=== PATIENT | male | born 1975 | race Caucasian/White ===

== ENCOUNTER 2017-11-30 18:20 | Emergency (ER) | payer OTHER ==
[2017-11-30 20:34] LABS: Basophils # (A) 0.1 k/uL (0-0.2); Basophils % (A) 1 %; Eosinophils # (A) 0.5 k/uL (0-0.7); Eosinophils % (A) 6 %; HCT 45.9 % (39.0-53.0); HGB 15.3 gm/dL (13.0-17.5); Lymphocytes # (A) 2.9 k/uL (1.0-4.8); Lymphocytes % (A) 33 %; MCH 30.6 pg (25.0-35.0); MCHC 33.4 g/dL (31.0-37.0); MCV 91.6 fL (80.0-100.0); Mean Platelet Volume 6.8; Monocytes # (A) 0.5 k/uL (0-1.0); Monocytes % (A) 5 %; Neutrophils # (A) 4.8 k/uL (1.3-7.7); Neutrophils % (A) 54 %; Platelet Count 266 k/uL (150-450); RBC 5.01 m/uL (4.30-5.90); RDW 12.6 % (11.5-15.5); WBC 8.9 k/uL (3.8-10.6)
[2017-11-30 20:37] VITALS: RESP 17
[2017-11-30 20:47] LABS: ALT 28 U/L (21-72); AST 24 U/L (17-59); Albumin 4.3 g/dL (3.5-5.0); Alkaline Phosphatase 70 U/L (38-126); Anion Gap 7 mmol/L; Blood Urea Nitrogen 19 mg/dL (9-20); Calcium 9.4 mg/dL (8.4-10.2); Carbon Dioxide 28 mmol/L (22-30); Chloride 106 mmol/L (98-107); Creatine Kinase 212 U/L (55-170); Glucose 86 mg/dL (74-99); Potassium 4.4 mmol/L (3.5-5.1); Sodium 141 mmol/L (137-145); Total Bilirubin 0.3 mg/dL (0.2-1.3); Total Protein 6.9 g/dL (6.3-8.2)
[2017-11-30 21:00] LABS: Creatine Kinase MB 0.5 ng/mL (0.0-2.4); Troponin I <0.012 ng/mL (0.000-0.034)
--- NOTE | 2017-11-30 21:25 | ED ---
GI Bleed HPI - General Chief complaint: GI Bleed Stated complaint: abd pain Time Seen by Provider: 11/30/17 20:41 Source: patient Mode of arrival: ambulatory Limitations: no limitations - History of Present Illness Initial comments: 42-year-old male patient presents to the emergency department today for evaluation of blood in his stool. Patient states that he has been having blood in his stool on and off for the last 5 months. Patient states that 5 months ago when it started, he would have small amounts of blood every couple of weeks. States that now he is having blood in his stool every few days. Patient states it is bright red blood. Patient states he is having some mild left-sided abdominal pain with this. She denies any history of hemorrhoids. Denies any rectal pain. Patient denies any diarrhea, nausea, vomiting, dizziness, weakness, chest pain, palpitations, or shortness of breath. Patient states that at the beginning of summer he did have a 13 pound weight loss over the course of one month. Patient believed this to be related to increased physical activity related to his job and has been taking a "weight marina" for the last couple of months. Patient states he has gained the weight back since starting the supplement. Patient denies any family history of colon cancer. Denies any history of bleeding disorders or use of anticoagulants. Patient denies any recent rash, fever, chills, back pain, numbness, tingling, dizziness , weakness, hematuria, dysuria, urinary urgency, urinary frequency, headache, visual changes, or any other complaints. - Related Data Home Medications Medication Instructions Recorded Confirmed HYDROcodone/APAP 5-325MG [[place] 5] 1 each PO Q4HR PRN 05/03/14 11/30/17 Eye Lubricant Combination No.1 1 applic BOTH EYES DAILY 11/30/17 11/30/17 [[place]] LORazepam [Ativan] 1 mg PO DAILY 11/30/17 11/30/17 Sildenafil [Revatio] 20 mg PO DAILY 11/30/17 11/30/17 valACYclovir HCL [Valtrex] 1,000 mg PO Q12HR PRN 11/30/17 11/30/17 Allergies Allergy/AdvReac Type Severity Reaction Status Date / Time No Known Allergies Allergy Verified 11/30/17 20:52 Review of Systems ROS Statement: Those systems with pertinent positive or pertinent negative responses have been documented in the HPI. ROS Other: All systems not noted in ROS Statement are negative. Past Medical History Past Medical History: No Reported History Additional Past Medical History / Comment(s): degen. disc History of Any Multi-Drug Resistant Organisms: None Reported Past Surgical History: Appendectomy Past Anesthesia/Blood Transfusion Reactions: No Reported Reaction Past Psychological History: No Psychological Hx Reported Smoking Status: Current every day smoker Past Alcohol Use History: None Reported Past Drug Use History: None Reported - Past Family History Father Family Medical History: Cancer Mother Family Medical History: Cancer General Exam Limitations: no limitations General appearance: alert, in no apparent distress, other (This is a well- developed, thin appearing adult male patient in no acute distress. Vital signs upon presentation are temperature 98.0F, pulse 87, respirations 18, blood pressure 114/66, pulse ox 98% on room air.) Eye exam: Present: normal appearance, PERRL, EOMI. Absent: scleral icterus, conjunctival injection, periorbital swelling ENT exam: Present: normal exam, normal oropharynx, mucous membranes moist Respiratory exam: Present: normal lung sounds bilaterally. Absent: respiratory distress, wheezes, rales, rhonchi, stridor Cardiovascular Exam: Present: regular rate, normal rhythm, normal heart sounds. Absent: systolic murmur, diastolic murmur, rubs, gallop, clicks GI/Abdominal exam: Present: soft, tenderness (Mild lower abdominal tenderness), normal bowel sounds. Absent: distended, guarding, rebound, rigid Neurological exam: Present: alert, oriented X3, CN II-XII intact Psychiatric exam: Present: normal affect, normal mood Skin exam: Present: warm, dry, intact, normal color. Absent: rash Course Vital Signs 11/30/17 11/30/17 11/30/17 19:37 20:35 21:45 Temperature 98.0 F Pulse Rate 87 84 77 Respiratory 18 17 17 Rate Blood Pressure 114/66 123/84 112/69 O2 Sat by Pulse 98 99 98 Oximetry 11/30/17 11/30/17 22:32 22:59 Temperature 97.9 F Pulse Rate 72 Respiratory 17 Rate Blood Pressure 104/72 O2 Sat by Pulse 98 Oximetry Medical Decision Making - Medical Decision Making 42-year-old male patient presents to the emergency department today for evaluation of blood in his stool. Physical examination did reveal some mild left lower quadrant tenderness. Labs reviewed and were unremarkable. White blood cell count was normal. Hemoglobin and hematocrit were within normal ranges. Patient vital signs are stable. Stools positive for occult blood. I did discuss findings and results with the patient. Patient does have an appointment for colonoscopy on 12/10/2017. He is urged to keep this appointment. He does have [place] at home for pain control. Return parameters were discussed in detail. He verbalizes understanding and agrees with this plan. - Lab Data Result diagrams: 11/30/17 20:21 11/30/17 20:21 Lab Results 11/30/17 11/30/17 11/30/17 Range/Units 19:32 20:21 20:21 WBC 8.9 (3.8-10.6) k/uL RBC 5.01 (4.30-5.90) m/uL Hgb 15.3 (13.0-17.5) gm/dL Hct 45.9 (39.0-53.0) % MCV 91.6 (80.0-100.0) fL MCH 30.6 (25.0-35.0) pg MCHC 33.4 (31.0-37.0) g/dL RDW 12.6 (11.5-15.5) % Plt Count 266 (150-450) k/uL Neutrophils % 54 % Lymphocytes % 33 % Monocytes % 5 % Eosinophils % 6 % Basophils % 1 % Neutrophils # 4.8 (1.3-7.7) k/uL Lymphocytes # 2.9 (1.0-4.8) k/uL Monocytes # 0.5 (0-1.0) k/uL Eosinophils # 0.5 (0-0.7) k/uL Basophils # 0.1 (0-0.2) k/uL APTT (22.0-30.0) sec Sodium (137-145) mmol/L Potassium (3.5-5.1) mmol/L Chloride (98-107) mmol/L Carbon Dioxide (22-30) mmol/L Anion Gap mmol/L BUN (9-20) mg/dL Creatinine (0.66-1.25) mg/dL Est GFR (CKD-EPI)AfAm (>60 ml/min/1.73 sqM) Est GFR (CKD-EPI)NonAf (>60 ml/min/1.73 sqM) Glucose (74-99) mg/dL Calcium (8.4-10.2) mg/dL Total Bilirubin (0.2-1.3) mg/dL AST (17-59) U/L ALT (21-72) U/L Alkaline Phosphatase (38-126) U/L Total Creatine Kinase 212 H (55-170) U/L CK-MB (CK-2) 0.5 (0.0-2.4) ng/mL CK-MB (CK-2) Rel Index 0.2 Troponin I <0.012 (0.000-0.034) ng/mL Total Protein (6.3-8.2) g/dL Albumin (3.5-5.0) g/dL Urine Color Yellow Urine Appearance Clear (Clear) Urine pH 6.0 (5.0-8.0) Ur Specific [place] 1.023 (1.001-1.035) Urine Protein Trace H (Negative) Urine Glucose (UA) Negative (Negative) Urine Ketones Negative (Negative) Urine Blood Negative (Negative) Urine Nitrite Negative (Negative) Urine Bilirubin Negative (Negative) Urine Urobilinogen <2.0 (<2.0) mg/dL Ur Leukocyte Esterase Negative (Negative) Stool Occult Blood (Negative) 11/30/17 11/30/17 11/30/17 Range/Units 20:21 20:21 21:40 WBC (3.8-10.6) k/uL RBC (4.30-5.90) m/uL Hgb (13.0-17.5) gm/dL Hct (39.0-53.0) % MCV (80.0-100.0) fL MCH (25.0-35.0) pg MCHC (31.0-37.0) g/dL RDW (11.5-15.5) % Plt Count (150-450) k/uL Neutrophils % % Lymphocytes % % Monocytes % % Eosinophils % % Basophils % % Neutrophils # (1.3-7.7) k/uL Lymphocytes # (1.0-4.8) k/uL Monocytes # (0-1.0) k/uL Eosinophils # (0-0.7) k/uL Basophils # (0-0.2) k/uL APTT 25.5 (22.0-30.0) sec Sodium 141 (137-145) mmol/L Potassium 4.4 (3.5-5.1) mmol/L Chloride 106 (98-107) mmol/L Carbon Dioxide 28 (22-30) mmol/L Anion Gap 7 mmol/L BUN 19 (9-20) mg/dL Creatinine 0.91 (0.66-1.25) mg/dL Est GFR (CKD-EPI)AfAm >90 (>60 ml/min/1.73 sqM) Est GFR (CKD-EPI)NonAf >90 (>60 ml/min/1.73 sqM) Glucose 86 (74-99) mg/dL Calcium 9.4 (8.4-10.2) mg/dL Total Bilirubin 0.3 (0.2-1.3) mg/dL AST 24 (17-59) U/L ALT 28 (21-72) U/L Alkaline Phosphatase 70 (38-126) U/L Total Creatine Kinase (55-170) U/L CK-MB (CK-2) (0.0-2.4) ng/mL CK-MB (CK-2) Rel Index Troponin I (0.000-0.034) ng/mL Total Protein 6.9 (6.3-8.2) g/dL Albumin 4.3 (3.5-5.0) g/dL Urine Color Urine Appearance (Clear) Urine pH (5.0-8.0) Ur Specific [place] (1.001-1.035) Urine Protein (Negative) Urine Glucose (UA) (Negative) Urine Ketones (Negative) Urine Blood (Negative) Urine Nitrite (Negative) Urine Bilirubin (Negative) Urine Urobilinogen (<2.0) mg/dL Ur Leukocyte Esterase (Negative) Stool Occult Blood Positive (Negative) - EKG Data -: EKG Interpreted by Me EKG Comments: EKG obtained at 2027 shows normal sinus rhythm with a ventricular rate of 73, KS interval 140, QRS duration 96, QT 394, QTC 434. No evidence of ST elevation or depression per Disposition Clinical Impression: GI bleed, Abdominal pain Disposition: HOME SELF-CARE Condition: Good Instructions: Gastrointestinal Bleeding (ED), Abdominal Pain (ED) Additional Instructions: Follow-up with the plan to have a colonoscopy. Return immediately if symptoms change or worsen. Follow-up with your primary care physician for recheck in 1- 2 days. Return here immediately for any new, worsening, or concerning symptoms. Is patient prescribed a controlled substance at d/c from ED?: No Referrals: aPul Nava MD [Primary Care Provider] - 1-2 days Time of Disposition: 22:38
[2017-11-30 21:52] LABS: Appearance,Urine Clear (Clear); Bilirubin,Urine Negative (Negative); Blood,Urine Negative (Negative); Color,Urine Yellow; Glucose,Urine (UA) Negative (Negative); Ketones,Urine Negative (Negative); Leukocyte Esterase,Urine Negative (Negative); Nitrite,Urine Negative (Negative); Protein,Urine Trace (Negative); Specific Gravity,Urine 1.023 (1.001-1.035); Urobilinogen,Urine <2.0 mg/dL (<2.0)
[2017-11-30 22:35] VITALS: BP 104/72; PULSE 72
[2017-11-30 23:00] VITALS: TEMP 97.9
== END 2017-11-30 23:00 | disposition home or self-care (01) ==
LOC: EC 18:20
DX: K92.2 Gastrointestinal hemorrhage, unspecified (principal); R10.9 Unspecified abdominal pain; F17.200 Nicotine dependence, unspecified, uncomplicated; Z90.49 Acquired absence of other specified parts of digestive tract; Z79.899 Other long term (current) drug therapy
CPT/HCPCS: 36415; 80053; 81003; 82272; 82550; 82553; 84484; 85025; 85730; 93005; 99285

== ENCOUNTER → 2020-01-30 | Day surgery (SDC) | payer BC, OTHER ==
[2020-01-25 15:45] VITALS: BMI 19.6
[~2020-01-30] MED LIST: LACTATED RINGERS 1,000 ML IV ONE; LACTATED RINGERS 1,000 ML IV SCH; PROPOFOL 10 MG/ML 20 ML VIAL IV ONE
[2020-01-30 11:43] VITALS: TEMP 97.8
--- NOTE | 2020-01-30 13:20 | P.PCN ---
Date of Procedure: 01/30/20 Procedure(s) Performed: BRIEF HISTORY: Patient is a 44-year-old pleasant white male scheduled for an elective colonoscopy as a part of intermittent rectal bleeding and history of colon polyps. Last colonoscopy was done by Dr. Arita 2 years ago and was noted to have a sigmoid polyp that was not removed endoscopically and biopsy reveals adenoma. Patient was lost for follow-up. If he has been having intermittent rectal bleeding. Hence scheduled for colonoscopy today. PROCEDURE PERFORMED: Colonoscopy with snare polypectom and biopsies y. PREOPERATIVE DIAGNOSIS: He of colon polyps and rectal bleeding. IV sedation per Anesthesia. PROCEDURE: After informed consent was obtained, the patient, was brought into the endoscopy unit. IV sedation was administered by Anesthesia under continuous monitoring. Digital rectal examination was normal. Initially the Olympus CF-160 flexible video colonoscope was then inserted in the rectum, gradually advanced into the cecum without any difficulty. Careful examination was performed as the scope was gradually being withdrawn. Ileocecal valve and the appendiceal orifice were visualized and appeared normal. Prep was excellent. Mucosa of the cecum, ascending colon, transverse colon, descending colon, appeared normal. The sigmoid colon there was a 5 mm polyp that was removed by cold biopsy. In the rectosigmoid colon at 20 cm from the anal verge there was a 4 cm sessile polyps with a very thick base status post partial polypectomy. Because of the location of the polyp and a very thick base and the difficult location I was not able to do a complete polypectomy at this time. The rectum appeared normal. Retroflexion was performed in the rectum and no lesions were seen. The patient tolerated the procedure well. IMPRESSION: Large 4 cm rectosigmoid polyp at 20 cm from the anal verge with a broad base/and thick peduncle status post partial snare polypectomy 5 mm sigmoid polyp status post biopsy RECOMMENDATIONS: Findings of this examination were discussed with the patient as well as his family.. He'll be seen in office next week. Based the biopsy results will plan a repeat flexible sigmoidoscopy with complete endoscopic polypectomy in one to 2 months. .
[2020-01-30 13:25] VITALS: RESP 16
[2020-01-30 13:44] VITALS: BP 107/61; PULSE 61
== END ==
LOC: ORWHC2ENDO 11:28
PROVIDERS: ATTEND Internal Medicine Gastroenterology
DX: D12.7 Benign neoplasm of rectosigmoid junction (principal); K63.5 Polyp of colon; F41.9 Anxiety disorder, unspecified; F17.210 Nicotine dependence, cigarettes, uncomplicated; Z86.010 Personal history of colon polyps; Z79.899 Other long term (current) drug therapy; Z79.891 Long term (current) use of opiate analgesic; Z90.49 Acquired absence of other specified parts of digestive tract
CPT/HCPCS: 88305; 45380; 45385; J2704

== ENCOUNTER 2020-02-27 07:17 | Day surgery (SDC) | payer BC, OTHER ==
[2020-02-20 12:33] VITALS: BMI 18.1
[~2020-02-27 07:17] MED LIST changes: -LACTATED RINGERS 1,000 ML IV ONE; -PROPOFOL 10 MG/ML 20 ML VIAL IV ONE
[2020-02-27 07:37] VITALS: TEMP 97.3
[2020-02-27] MEDS ORDERED: LIDOCAINE 1% (10MG/ML) FOR IV START INTRADERMA ONE (07:39)
[2020-02-27] MEDS ORDERED: PROPOFOL 10 MG/ML 20 ML VIAL IV ONE (08:26)
--- NOTE | 2020-02-27 08:49 | P.PCN ---
Date of Procedure: 02/27/20 Procedure(s) Performed: BRIEF HISTORY: Patient is a 44-year-old pleasant male scheduled for an flexible sigmoidoscopic as part of lower follow up ctosigmoid colon polyp that was noted on recent colonoscopy 2 months ago. The polyp was partially removed and the biopsy revealed tubular villous adenoma with high-grade dysplasia. He scheduled for a complete polypectomy today PROCEDURE PERFORMED: FLEXIBLE SIGMOIDOSCOPE WITH SNARE POLYPECTOMY PREOPERATIVE DIAGNOSIS: Follow-up large rectosigmoid polyp. IV sedation per Anesthesia. PROCEDURE: After informed consent was obtained, the patient, was brought into the endoscopy unit. IV sedation was administered by Anesthesia under continuous monitoring. Digital rectal examination was normal. Initially the Olympus CF-160 flexible video colonoscope was then inserted in the rectum, gradually advanced into the descending colon without any difficulty.. Careful examination was performed as the scope was gradually being withdrawn. Mucosa of the descending colon, sigmoid colon appeared normal. In the rectosigmoid colon at 20 cm from the anal verge there was a 3 cm thick pedunculated polyp that was removed by snare polypectomy and complete polypectomy was accomplished. The rectum appeared normal. Retroflexion was performed in the rectum and no lesions were seen. The patient tolerated the procedure well. IMPRESSION: 3 cm thick pedunculated rectosigmoid polyp status post snare polypectomy and complete polypectomy was accomplished RECOMMENDATIONS: Findings of this examination were discussed with the patient as well as his family. He was advised to follow with the biopsy results. Based on the biopsy results will plan a repeat colonoscopy in one year.
[2020-02-27 08:53] VITALS: PULSE 70
[2020-02-27 09:07] VITALS: RESP 18
[2020-02-27 09:24] VITALS: BP 108/63
== END 2020-02-27 09:28 | disposition home or self-care (01) ==
LOC: ORWHC2ENDO 07:17
PROVIDERS: ATTEND Internal Medicine Gastroenterology
DX: D12.7 Benign neoplasm of rectosigmoid junction (principal); G47.33 Obstructive sleep apnea (adult) (pediatric); F17.210 Nicotine dependence, cigarettes, uncomplicated; Z99.89 Dependence on other enabling machines and devices; Z79.899 Other long term (current) drug therapy
CPT/HCPCS: 88305; 45338; J2704

== ENCOUNTER 2021-07-17 09:39 | Day surgery (SDC) | payer BC ==
[2021-07-17 09:59] VITALS: TEMP 98.5
[2021-07-17] MEDS ORDERED: PROPOFOL 10 MG/ML 20 ML VIAL IV ONE (11:19)
--- NOTE | 2021-07-17 11:39 | P.PCN ---
Date of Procedure: 07/17/21 Procedure(s) Performed: BRIEF HISTORY: Patient is a 46-year-old pleasant white male scheduled for an elective colonoscopy as a part of evaluation of prior history of colon polyps. He had a colonoscopy 2 years ago and was noted to have a large rectosigmoid polyp that was removed which revealed a tubulovillous adenoma. He scheduled for a surveillance colonoscopy today. PROCEDURE PERFORMED: Colonoscopy. PREOPERATIVE DIAGNOSIS: History of colon Polyps. IV sedation per Anesthesia. PROCEDURE: After informed consent was obtained, the patient, was brought into the endoscopy unit. IV sedation was administered by Anesthesia under continuous monitoring. Digital rectal examination was normal. Initially the Olympus CF-160 flexible video colonoscope was then inserted in the rectum, gradually advanced into the cecum without any difficulty. Careful examination was performed as the scope was gradually being withdrawn. Ileocecal valve and the appendiceal orifice were visualized and appeared normal. Prep was excellent. Mucosa of the cecum, ascending colon, transverse colon, descending colon, sigmoid colon, and rectum appeared normal. Retroflexion was performed in the rectum and no lesions were seen. The patient tolerated the procedure well. IMPRESSION: Normal-appearing colon from rectum to cecum with no evidence of colorectal neoplasia Scattered sigmoid diverticulosis . RECOMMENDATIONS: Findings of this examination were discussed with the patient as his family. He was advised to have a repeat screening colonoscopy in 5 years now because of the prior history of colon polyps.
[2021-07-17 12:07] VITALS: RESP 16
[2021-07-17 12:15] VITALS: BP 106/68; PULSE 65
== END 2021-07-17 12:16 | disposition home or self-care (01) ==
LOC: ORWHC2ENDO 09:39
PROVIDERS: ATTEND Internal Medicine Gastroenterology
DX: Z12.11 Encounter for screening for malignant neoplasm of colon (principal); K57.30 Diverticulosis of large intestine without perforation or abscess without bleeding; Z86.010 Personal history of colon polyps; G47.33 Obstructive sleep apnea (adult) (pediatric); F17.200 Nicotine dependence, unspecified, uncomplicated; Z79.899 Other long term (current) drug therapy
CPT/HCPCS: J2704; G0105; 45378